=== PATIENT | female | born 2000 | race Two or more races ===

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

== ENCOUNTER 2021-01-17 19:17 | Emergency (ER) | payer MEDICAID, OTHER ==
[~2021-01-17] VITALS: Ht 170.2 cm; Wt 72.6 kg
[2021-01-17] MEDS ORDERED: IV NORMAL SALINE 1000 ML BAG IV ONE (19:45)
--- NOTE | 2021-01-17 20:02 | NUR ---
Patient discharged to home in stable condition. A/O x4, no SOB or labored breathing, denies any pain/discomfort. Written and verbal after care instructions given. Patient verbalizes understanding of instructions. Stressed follow up or return to ER for worsening s/s. Steady gait.
[2021-01-17 20:03] VITALS: BP 108/75
== END 2021-01-17 20:03 | disposition home or self-care (01) ==
LOC: ER 19:24
DX: H00.024 Hordeolum internum left upper eyelid (principal)
CPT/HCPCS: A4663

== ENCOUNTER 2021-11-08 12:13 | Emergency (ER) | payer OTHER ==
[~2021-11-08] VITALS: Ht 170.2 cm; Wt 72.6 kg
--- NOTE | 2021-11-08 12:54 | NUR ---
to examine pt.
[2021-11-08 13:07] LABS: HEMATOCRIT 36.5 % (31.2-41.9); MEAN CORPUSCULAR HEMOGLOBIN 31.3 uug (24.7-32.8); MEAN CORPUSCULAR VOLUME 90.5 fL (75.5-95.3); PLATELET COUNT (AUTO) 219 K/uL (179-408)
[2021-11-08 13:13] LABS: CREATININE 0.7 mg/dL (0.6-1.3); POTASSIUM 3.6 mmol/L (3.5-5.1)
--- NOTE | 2021-11-08 13:53 | NUR ---
DCD instructions and excuse to work given to pt. who verbalized understanding. pt. left room AAOX4. Ambulatory no c/of pain
== END 2021-11-08 13:54 | disposition home or self-care (01) ==
LOC: ER 12:13
DX: O99.340 Other mental disorders complicating pregnancy, unspecified trimester (principal); F32.A Depression, unspecified; Z3A.00 Weeks of gestation of pregnancy not specified
CPT/HCPCS: 36415; 85025; A4663